=== PATIENT | female | born 1945 | race Hispanic/Latino ===

== ENCOUNTER 2017-11-10 12:00 | Inpatient (IN) | payer MEDICARE, OTHER ==
[~2017-11-10] VITALS: Ht 160 cm; Wt 81.2 kg
[~2017-11-10 12:00] MED LIST: AEC81 PO; ATOR40TA69 PO; CALC-190 PO; FISH1CAP27 PO; GLUC1CAP36 PO; INSU10VI3 SQ; IRON PO; LISI1TAB11 PO; METF10004 PO; PYRI50CA PO; VITA400C19 PO
[2017-11-17 14:34] VITALS: BP 185/86
[2017-11-17] MEDS ORDERED: AEC81 PO (15:06)
[2017-11-17] MEDS ORDERED: GABA-531 PO (15:06)
[2017-11-17] MEDS ORDERED: XALA2.5OS OU (15:06)
[2017-11-17] MEDS ORDERED: CYAN500 PO (15:06)
[2017-11-17] MEDS ORDERED: CALC625T77 PO (15:07)
[2017-11-17 15:13] LABS: BASOPHILS % (AUTO) 0.7 % (0.0-5.0); EOSINOPHILS % (AUTO) 3.2 % (0.0-8.0); HEMATOCRIT 34.9 % (36-48); LYMPHOCYTES % (AUTO) 30.2 % (21.0-51.0); MEAN CORPUSCULAR HEMOGLOBIN 27.6 pg (27.0-33.0); MEAN CORPUSCULAR HGB CONC 32.8 g/dL (32.0-36.0); MEAN CORPUSCULAR VOLUME 84.1 fL (79-99); MONOCYTES % (AUTO) 7.5 % (3.0-13.0); NEUTROPHILS % (AUTO) 58.4 % (40.0-77.0); PLATELET COUNT (AUTO) 244 K/uL (130-400); RED BLOOD CELL COUNT(AUTO) 4.15 MIL/uL (4.00-5.50); RED CELL DISTRIBUTION WIDTH 14.9 % (11.0-15.5); WHITE BLOOD COUNT (AUTO) 5.2 K/uL (4.8-10.8)
[2017-11-17 15:27] LABS: CREATININE 0.9 mg/dL (0.5-1.5); POTASSIUM 4.4 mmol/L (3.5-5.1)
[2017-11-19] VITALS (21 sets, daily range): BP systolic 101–157; BP diastolic 47–71
[2017-11-19] MEDS: CEFAZOLIN SODIUM 1 GM VIAL IVP SCH ×2 (06:00→08:00)
[2017-11-19] MEDS ORDERED: SODIUM CHLORIDE 0.9% 1000ML 1,000 ML IV ONE (07:03)
[2017-11-19] MEDS ORDERED: WATER FOR INJECTION,STERILE 20 ML VIAL ONE (07:04)
[2017-11-19] MEDS ORDERED: DEXAMETHASONE SOD PHOSPHATE 10MG/ML 1ML VIAL ONE ×2 (07:09→09:45)
[2017-11-19] MEDS ORDERED: GLYCOPYRROLATE 0.2 MG/ML 5 ML VIAL ONE (07:09)
[2017-11-19] MEDS ORDERED: LIDOCAINE PF 2% 5ML ABBOJECT ONE (07:09)
[2017-11-19] MEDS ORDERED: SUCCINYLCHOLINE 200MG/10ML SYR ONE ×2 (07:09→09:45)
[2017-11-19] MEDS ORDERED: NEOSTIGMINE METHYLSULFATE 1MG/ML IV ONE (07:09)
[2017-11-19] MEDS ORDERED: ONDANSETRON HCL 4 MG/2 ML VIAL ONE ×2 (07:09→09:46)
[2017-11-19] MEDS ORDERED: MIDAZOLAM HCL 1 MG/ML 2ML VIAL ONE (07:10)
[2017-11-19] MEDS ORDERED: PROPOFOL 10 MG/ML 20ML VIAL IV ONE (07:10)
[2017-11-19] MEDS ORDERED: FENTANYL CITRATE PF 50 MCG/1 ML 2ML VIAL ONE ×3 (07:10→11:12)
[2017-11-19] MEDS ORDERED: BACITRACIN 50,000 UNIT VIAL ONE (07:13)
[2017-11-19] MEDS ORDERED: THROMBIN-JMI 20000 UNIT KIT TP ONE (07:13)
[2017-11-19] MEDS ORDERED: BUPIVACAINE/PF 0.25% 30ML VIAL IJ ONE (07:13)
[2017-11-19] MEDS ORDERED: DURAMORPH PF1 MG/ML 10ML AMP IV ONE (07:13)
[2017-11-19] MEDS ORDERED: EPINEPHRINE 1 MG/ML AMPULE ONE (07:13)
[2017-11-19] MEDS ORDERED: METOCLOPRAMIDE 10 MG/2 ML VIAL ONE (09:45)
[2017-11-19] MEDS ORDERED: ROCURONIUM BROMIDE 10MG/1ML 5ML VL ONE ×2 (09:45)
[2017-11-19] MEDS ORDERED: LIDOCAINE HCL 2% JELLY 5 ML ONE (09:46)
[2017-11-19] MEDS ORDERED: CEFAZOLIN SODIUM 1 GM VIAL ONE (11:59)
[2017-11-19] MEDS: LACTATED RINGERS 1000ML 1,000 ML IV SCH (12:17)
[2017-11-19] MEDS: DEXAMETHASONE SOD PHOSPHATE 4 MG/ML 1ML VIAL IVP SCH ×2 (12:30→17:20)
[2017-11-19] MEDS ORDERED: SODIUM CHLORIDE 0.9% 10 ML VIAL IVP PRN (12:30)
[2017-11-19] MEDS ORDERED: VITAMIN E 400 UNIT CAPSULE PO SCH (12:30)
[2017-11-19] MEDS ORDERED: ASPIRIN 81 MG EC TAB PO SCH (12:30)
[2017-11-19] MEDS ORDERED: MORPHINE SULFATE 2 MG/ML 1ML SYG IVP PRN (12:30)
[2017-11-19] MEDS ORDERED: CEFAZOLIN 2GM / 50 ML 50 ML IV SCH (12:30)
[2017-11-19] MEDS ORDERED: PROMETHAZINE HCL 25 MG/ML 1ML AMPULE IM PRN (12:30)
[2017-11-19] MEDS ORDERED: HYDROCODONE/ACETAMINOPHEN 5/325 MG TAB PO PRN ×2 (12:30→13:30)
[2017-11-19] MEDS ORDERED: DEXTROSE 50%-WATER 50 ML DISP.SYRIN IV PRN (15:15)
[2017-11-19] MEDS ORDERED: GLUCAGON 1MG KIT 1 MG ML IM PRN (15:15)
[2017-11-19] MEDS ORDERED: CEFAZOLIN SODIUM 1 GM VIAL IVP ONE (16:00)
[2017-11-19] MEDS ORDERED: LATANOPROST 2.5 ML DROPS OU SCH (17:00)
[2017-11-19] MEDS: INSULIN HUMULIN R 100 UNIT/ML 3ML SQ SCH ×2 (17:24→21:00)
[2017-11-19] MEDS: METFORMIN HCL 500 MG TABLET PO SCH (18:00)
[2017-11-19] MEDS: FISH OIL 1000 MG/CAP PO SCH ×2 (21:00→21:57)
[2017-11-19] MEDS ORDERED: ATORVASTATIN CALCIUM 40 MG TABLET PO SCH (21:00)
[2017-11-19] MEDS ORDERED: INSULIN HUMULIN 70/30 100 UNIT/ML 3ML SQ SCH (21:00)
[2017-11-19] MEDS ORDERED: METFORMIN HCL 500 MG TABLET PO SCH (21:00)
[2017-11-19] MEDS: GABAPENTIN 300 MG CAPSULE PO SCH (21:56)
[2017-11-19] MEDS: CALCIUM 600 + VITAMIN D 400 TABLET PO SCH (21:59)
[2017-11-20] MEDS: DEXAMETHASONE SOD PHOSPHATE 4 MG/ML 1ML VIAL IVP SCH ×2 (00:21→05:45)
[2017-11-20] MEDS: LACTATED RINGERS 1000ML 1,000 ML IV SCH (01:37)
[2017-11-20 04:00] VITALS: BP 124/60
[2017-11-20] MEDS: INSULIN HUMULIN R 100 UNIT/ML 3ML SQ SCH ×2 (07:00→12:00)
[2017-11-20 07:59] VITALS: BP 156/66
[2017-11-20] MEDS: GABAPENTIN 300 MG CAPSULE PO SCH (08:53)
[2017-11-20] MEDS: CALCIUM 600 + VITAMIN D 400 TABLET PO SCH (08:53)
[2017-11-20] MEDS: METFORMIN HCL 500 MG TABLET PO SCH (08:55)
[2017-11-20] MEDS: FISH OIL 1000 MG/CAP PO SCH (08:56)
[2017-11-20] MEDS ORDERED: ASPIRIN 81 MG EC TAB PO SCH (09:00)
[2017-11-20] MEDS ORDERED: HYDROCHLOROTHIAZIDE PO SCH (09:00)
[2017-11-20] MEDS ORDERED: INSULIN HUMULIN 70/30 100 UNIT/ML 3ML SQ SCH (09:00)
[2017-11-20] MEDS ORDERED: LISINOPRIL PO SCH (09:00)
[2017-11-20] MEDS ORDERED: IRON 65 MG PO SCH (09:00)
[2017-11-20] MEDS ORDERED: THIAMINE HCL 100 MG TABLET PO SCH (09:00)
[2017-11-20] MEDS ORDERED: CYANOCOBALAMIN (VITAMIN B-12) 1,000 MCG TABLET PO SCH (09:00)
[2017-11-20 11:43] VITALS: BP 136/60
[2017-11-20] MEDS ORDERED: GLUCOSAMINE-CHONDROITIN PO SCH (12:00)
[2017-11-20] MEDS ORDERED: CALCIUM POLYCARBOPHIL 625 MG PO SCH (17:00)
== END 2017-11-20 12:24 | disposition home or self-care (01) | DRG 517 ==
LOC: DAHIP 11-19 05:56 → 4AH 11-19 13:31
PROVIDERS: ADMIT Neurological Surgery; ATTEND Neurological Surgery
PROC: 01NB0ZZ Release Lumbar Nerve, Open Approach (ICD-10-PCS; principal; 2017-11-19 07:45)
PROC: 4A1104G Monitoring of Peripheral Nervous Electrical Activity, Intraoperative, Open Approach (ICD-10-PCS; 2017-11-19 07:45)
DX: M48.07 Spinal stenosis, lumbosacral region (principal); E11.51 Type 2 diabetes mellitus with diabetic peripheral angiopathy without gangrene; M54.16 Radiculopathy, lumbar region; E78.5 Hyperlipidemia, unspecified; I10 Essential (primary) hypertension; I25.10 Atherosclerotic heart disease of native coronary artery without angina pectoris; Z79.899 Other long term (current) drug therapy
CPT/HCPCS: 36415; 72020; 80048; 82948; 85025; A4218; A4344; J0171; J0330; J0690; J1100; J1815; J2001; J2250; J2274; J2405; J2550; J2704; J2710; J2765; J3010; J3490; J7030

== ENCOUNTER → 2018-04-30 | Outpatient (CLI) | payer OTHER ==
[~2018-04-30] MED LIST changes: +CALC625T77 PO; +CYAN500 PO; +GABA-531 PO; +XALA2.5OS OU
== END | disposition home or self-care (01) ==
LOC: OIH 12:36
PROVIDERS: ATTEND Internal Medicine Cardiovascular Disease
DX: Z13.6 Encounter for screening for cardiovascular disorders (principal)
CPT/HCPCS: 75571